=== PATIENT | female | born 1985 | race African-American/Black ===

== ENCOUNTER 2017-09-11 01:56 | Inpatient (IN) | payer OTHER ==
[2017-09-11] MEDS ORDERED: SUBLIMAZE IV PRN (04:24)
[2017-09-11] MEDS ORDERED: XYLOCAINE 2% INFILTRATI ONE (04:24)
[2017-09-11] MEDS ORDERED: MINERAL OIL PO PRN (04:24)
[2017-09-11] MEDS ORDERED: POLYCILLIN/NS 2 GM/100 ML 2 GM/100 ML BAG IV ONE (04:24)
[2017-09-11] MEDS ORDERED: BRETHINE IVP PRN (04:24)
[2017-09-11] MEDS ORDERED: BRETHINE SUB-Q PRN (04:24)
[2017-09-11] MEDS ORDERED: ePHEDrine SULFATE IV PRN ×2 (04:24→13:20)
[2017-09-11] MEDS ORDERED: STADOL IV PRN (04:24)
[2017-09-11 04:51] LABS: Hematocrit 34.4 % (30.3-42.9); Hemoglobin 11.3 gm/dl (10.1-14.3); Mean Corpuscular HGB Conc 33 % (30-34); Mean Corpuscular Hemoglobin 27 pg (28-32); Mean Corpuscular Volume 82 fl (79-97); Platelet Count 280 K/mm3 (140-440); Red Blood Count 4.23 M/mm3 (3.65-5.03); Red Cell Distribution Width 15.8 % (13.2-15.2)
[2017-09-11] MEDS ORDERED: PITOCin/NS 20 UNIT/1000ML DRIP 20 UNITS/1,000 ML BAG IV SCH (05:00)
[2017-09-11] MEDS ORDERED: LACTATED RINGERS 1,000 ML IV SCH (05:00)
--- NOTE | 2017-09-11 07:09 | Ultrasound Report ---
FINAL REPORT EXAM: US OB LIMITED HISTORY: r/o SROM TECHNIQUE: A limited OB sonogram was obtained for evaluation of amniotic fluid volume. FINDINGS: There is a single in cephalic presentation. The heart rate is 127 BPM. The PEDRITO is 3.4 cm which is decreased. IMPRESSION: PEDRITO is 3.4 cm which is below normal. The findings consistent with a oligo hydramnios.
[2017-09-11] MEDS ORDERED: PITOCin/NS 30 UNIT/500ML 30 UNITS/500 ML BAG IV SCH (07:30)
--- NOTE | 2017-09-11 08:06 | History and Physical Report ---
History of Present Illness Date of examination: 09/11/17 Date of admission: 09/11/17 04:02 Chief complaint: My water broke at 4 am History of present illness: 32 y/o presents to Labor and delivery with C/O ruptured membranes at 4am. She had care at [facility] starting at 11 weeks. course uneventful. GBS Negative Past History Past Medical History: no pertinent history Past Surgical History: no surgical history Family/Genetic History: none Social history: no significant social history - Obstetrical History Expected Date of Delivery: 09/23/17 Actual Gestation: 38 Week(s) 2 Day(s) : 3 Para: 2 Hx # Term Pregnancies: 2 Number of Living Children: 2 Medications and Allergies Allergies Allergy/AdvReac Type Severity Reaction Status Date / Time No Known Allergies Allergy Verified 09/11/17 04:45 Active Meds: Active Medications Butorphanol Tartrate (Stadol) 2 mg IV Q2H PRN PRN Reason: Pain , Severe (7-10) Ephedrine Sulfate (Ephedrine Sulfate) 10 mg IV Q2M PRN PRN Reason: Hypotension Fentanyl (Sublimaze) 100 mcg IV Q2H PRN PRN Reason: Labor Pain Lactated Ringer's (Lactated Ringers) 1,000 mls @ 125 mls/hr IV DIRECT GLORY Last Admin: 09/11/17 07:15 Dose: 125 mls/hr Oxytocin/Sodium Chloride (Pitocin/Ns 20 Unit/1000ml Drip) 20 units in 1,000 mls @ 125 mls/hr IV DIRECT GLORY Ampicillin Sodium (Ampicillin/Ns 1 Gm/50 Ml) 1 gm in 50 mls @ 100 mls/hr IV Q4H GLORY; Protocol Oxytocin/Sodium Chloride (Pitocin/Ns 30 Unit/500ml) 30 units in 500 mls @ 2 mls /hr IV TITR GLORY; Protocol Mineral Oil (Mineral Oil) 30 ml PO QHS PRN PRN Reason: Constipation Terbutaline Sulfate (Brethine) 0.25 mg SUB-Q ONCE PRN PRN Reason: Hyperstimulation/Hypertonicity Terbutaline Sulfate (Brethine) 0.25 mg IVP ONCE PRN PRN Reason: Hyperstimulation/Hypertonicity Review of Systems All systems: negative - Vital Signs Vital signs: Vital Signs Temp Pulse Resp BP 98.7 F 99 H 18 130/75 09/11/17 02:43 09/11/17 02:43 09/11/17 02:43 09/11/17 02:43 Temp Pulse Resp BP Pulse Ox 98.4 F 97 H 16 112/62 93 09/11/17 07:50 09/11/17 08:07 09/11/17 07:50 09/11/17 07:50 09/11/17 08:07 - Physical Exam Cardiovascular: Regular rate Lungs: Positive: Clear to auscultation Abdomen: Positive: soft Vulva: both: normal Vagina: Positive: normal moisture Uterus: Positive: enlarged Deep Tendon Reflex Grade: Normal +2 - Obstetrical FHR: category 1 Cervical Dilatation: 2 (SROM 4am clear) Cervical Effacement Percentage: 70 station: -2 Uterine Contraction Pattern: Irregular Uterine Contraction Intensity: Mild Results Result Diagrams: 09/11/17 03:40 Abnormal lab results 09/11/17 Range/Units 03:40 MCH 27 L (28-32) pg RDW 15.8 H (13.2-15.2) % All other labs normal. Assessment and Plan A: Srom @ 38.2 weeks, clear fluid P: Pitocin augmentation Expect
[2017-09-11] MEDS ORDERED: AMPICILLIN/NS 1 GM/50 ML 1 GM/50 ML BAG IV SCH (08:30)
[2017-09-11] MEDS ORDERED: NARCAN 2 MG/2 ML IV PRN (13:20)
--- NOTE | 2017-09-11 13:20 | Anesthesia Consultation ---
Anesthesia Consult and Med Hx Date of service: 09/11/17 - Airway Anesthetic Teeth Evaluation: Good ROM Head & Neck: Adequate Mental/Hyoid Distance: Adequate Mallampati Class: Class II Intubation Access Assessment: Probably Good - Pre-Operative Health Status ASA Pre-Surgery Classification: ASA2 Proposed Anesthetic Plan: Epidural, Spinal - Pulmonary Hx Asthma: No COPD: No Hx Pneumonia: No - Cardiovascular System Hx Hypertension: No - Central Nervous System Hx Seizures: No Hx Psychiatric Problems: No - Endocrine Hx Renal Disease: No Hx End Stage Renal Disease: No Hx Hypothyroidism: No Hx Hyperthyroidism: No - Hematic Hx Anemia: No Hx Sickle Cell Disease: No - Other Systems Hx Alcohol Use: No
[2017-09-11] MEDS ORDERED: fentaNYL-BUPIV 2 MCG/ML-0.125% 200 MCG/100 ML BAG EPIDURAL SCH (14:00)
[2017-09-11] MEDS ORDERED: BENADRYL PO PRN (14:35)
[2017-09-11] MEDS ORDERED: LANSINOH TP PRN (14:35)
[2017-09-11] MEDS ORDERED: NORCO 5/325 PO PRN (14:35)
[2017-09-11] MEDS ORDERED: TUCKS PAD TP PRN (14:35)
[2017-09-11] MEDS ORDERED: TYLENOL PO PRN (14:35)
--- NOTE | 2017-09-11 14:35 | Procedure Note ---
OB Delivery Note - Delivery Date of Delivery: 09/11/17 Surgeon: BRAN GROSSMAN Estimated blood loss: 200cc - Vaginal Delivery presentation: vertex Delivery position: OA Intrapartum events: none Delivery induction: none Delivery augmentation: pitocin Delivery monitor: external FHT, external uterine Route of delivery: Delivery placenta: spontaneous Delivery cord: 3 umbilical vessels Delivery laceration: 2nd degree Delivery repair: vicryl Anesthesia: epidural Delivery comments: of a viable male 7#-2 oz @ 1411 on 09/11/17. 2nd degree perineal laceration noted and repaired with 2-0 vicryl. Placenta delivered 3 VCI. FF @ U-2, Mother and baby doing well. EBL 200cc - A at 1 minute: 8 at 5 minutes: 9 Infant Gender: Male (7#-2oz)
[2017-09-11] MEDS ORDERED: SODIUM CHLORIDE FLUSH SYRINGE 10 ML IV NR (15:00)
[2017-09-11] MEDS ORDERED: NORCO 5/325 ONE (16:29)
[2017-09-11] MEDS ORDERED: DERMOPLAST TP PRN (16:36)
[2017-09-11] MEDS: MOTRIN PO SCH ×2 (18:42→23:48)
[2017-09-11] MEDS ORDERED: CERVIDIL VG ONE (19:55)
[2017-09-12 03:02] LABS: Hemoglobin 10.9 gm/dl (10.1-14.3)
[2017-09-12] MEDS: MOTRIN PO SCH (05:52)
--- NOTE | 2017-09-12 10:39 | Progress Note ---
Assessment and Plan A: PP Day #1 Stable P: Follow Routine Orders Depo Provera prior to discharge D/c home today per patient request RTO in 6 weeks Subjective - Subjective Date of service: 09/12/17 Patient reports: appetite normal, voiding normally, pain well controlled, flatus , ambulating normally [place]: doing well Objective - Vital Signs Latest vital signs: Vital Signs Temp Pulse Resp BP BP Pulse Ox 09/12/17 07:45 98.4 F 83 18 99/53 98 09/12/17 02:00 98.4 F 89 20 117/66 99 09/12/17 01:51 98.0 F 89 18 110/69 94 09/11/17 23:48 18 09/11/17 20:40 98.6 F 89 18 119/70 97 09/11/17 16:10 98.7 F 96 H 18 108/68 09/11/17 16:04 98.4 F 105 H 16 117/59 09/11/17 16:02 106 H 117/59 09/11/17 15:15 100 H 14 109/64 09/11/17 15:14 100 H 109/64 09/11/17 15:04 98.4 F 106 H 16 105/61 09/11/17 14:59 106 H 105/61 09/11/17 14:44 106 H 113/59 09/11/17 14:29 94 H 106/58 09/11/17 14:26 100 H 115/58 09/11/17 14:21 116 H 199/166 09/11/17 14:15 99.0 F 99 H 16 138/63 09/11/17 14:12 107 H 94 09/11/17 14:10 99 H 138/63 94 09/11/17 14:07 107 H 134/65 97 09/11/17 14:03 107 H 148/76 09/11/17 14:02 117 H 148/83 98 09/11/17 14:00 123 H 191/127 09/11/17 13:57 115 H 142/76 94 09/11/17 13:55 101 H 134/70 09/11/17 13:53 101 H 133/68 09/11/17 13:52 103 H 95 09/11/17 13:51 112 H 129/68 09/11/17 13:49 102 H 131/66 09/11/17 13:47 104 H 130/68 95 09/11/17 13:45 106 H 132/68 09/11/17 13:43 91 H 129/70 09/11/17 13:42 97 H 96 09/11/17 13:41 90 132/76 09/11/17 13:39 101 H 137/81 09/11/17 13:38 107 H 89 09/11/17 13:37 100 H 128/81 97 09/11/17 13:35 108 H 128/77 09/11/17 13:34 98 H 132/77 09/11/17 13:33 104 H 125/71 09/11/17 13:32 110 H 97 09/11/17 13:27 103 H 98 09/11/17 13:22 102 H 96 09/11/17 13:15 99 H 124/71 09/11/17 12:50 100 H 108/59 09/11/17 12:40 16 Intake and Output 09/11/17 09/12/17 09/12/17 22:59 06:59 14:59 Intake Total 120 240 Output Total 300 300 Balance -180 -60 Intake: Oral 120 240 Output: Urine 300 300 Void 300 300 Other: Total, Intake Amount 120 240 Total, Output Amount 300 300 Voiding Method Toilet # Voids Void 1 - Exam Breasts: Present: normal Cardiovascular: Present: Regular rate Lungs: Present: Clear to auscultation, Normal air movement Abdomen: Present: normal appearance, soft, normal bowel sounds Uterus: Present: normal, firm, fundal height below umbilicus Extremities: Present: normal
--- NOTE | 2017-09-12 10:40 | Discharge Summary ---
Providers - Providers Date of Admission: 09/11/17 04:02 Date of discharge: 09/12/17 Attending physician: RAMÓN DELGADO MD Primary care physician: RAMÓN DELGADO MD Hospitalization Reason for admission: active labor Delivery: Episiotomy: none Laceration: 2nd degree Other procedures: none complications: none Discharge diagnosis: IUP at term delivered [place] baby: male Condition at discharge: Good Disposition: DC-01 TO HOME OR SELFCARE Plan - Provider Discharge Summary Activity: routine, no sex for 6 weeks, no heavy lifting 4 weeks, no strenuous exercise Diet: routine Instructions: routine Additional instructions: [] Smoking cessation referral if applicable(refer to patient education folder for contact #) [] Refer to [facility]'s [facility] Booklet Call your doctor immediately for: * Fever > 100.5 * Heavy vaginal bleeding ( >1 pad per hour) * Severe persistent headache * Shortness of breath * Reddened, hot, painful area to leg or breast * Drainage or odor from incision. * Keep incision clean and dry at all times and follow doctor's instructions regarding bathing/showering - Follow up plan Follow up: RAMÓN DELGADO MD [Primary Care Provider] - 6 Weeks
[2017-09-12 16:55] VITALS: BP 106/62
== END 2017-09-12 17:10 | disposition home or self-care (01) | DRG 775 ==
LOC: TRG 01:56 → LD 04:02 → OB 16:31
PROVIDERS: ADMIT Obstetrics & Gynecology; ATTEND Obstetrics & Gynecology
PROC: 10E0XZZ Delivery of Products of Conception, External Approach (ICD-10-PCS; principal; 2017-09-11)
PROC: 0KQM0ZZ Repair Perineum Muscle, Open Approach (ICD-10-PCS; 2017-09-11)
PROC: 3E0R3BZ Introduction of Anesthetic Agent into Spinal Canal, Percutaneous Approach (ICD-10-PCS; 2017-09-11)
PROC: 00HU33Z Insertion of Infusion Device into Spinal Canal, Percutaneous Approach (ICD-10-PCS; 2017-09-11)
DX: O70.1 Second degree perineal laceration during delivery (principal); Z37.0 Single live birth; Z3A.38 38 weeks gestation of pregnancy
CPT/HCPCS: 36415; 76815; 85014; 85018; 85027; 86592; 86850; 86900; 86901; 99211; G0463; J0290; J0595; J2590; J3010; J7120